=== PATIENT | female | born 1985 | race Caucasian/White ===

== ENCOUNTER 2018-01-28 11:47 | Inpatient (IN) | payer MEDICAID ==
[2018-01-28 12:50] LABS: ADD MAN DIFF? NO
[2018-01-28 12:59] LABS: WHITE BLOOD COUNT 7.3 10^3/ul (4.8-10.8)
[2018-01-28 12:59] LABS: BASOPHIL # 0.1 10^3/ul (0.0-0.1); BASOPHILS % 0.7 % (0.0-2.0); EOSINOPHILS # 0.2 10^3/ul (0.0-0.5); EOSINOPHILS % 2.1 % (0.0-7.0); HEMATOCRIT 42.2 % (37.0-47.0); HEMOGLOBIN 14.2 g/dl (12.0-16.0); LYMPHOCYTES # 1.7 10^3/ul (0.8-2.9); LYMPHOCYTES % 23.7 % (15.0-51.0); MEAN CORPUSCULAR HEMOGLOBIN 30.7 pg (29.0-33.0); MEAN CORPUSCULAR HGB CONC 33.6 g/dl (32.0-37.0); MEAN CORPUSCULAR VOLUME 91.3 fl (82.0-101.0); MEAN PLATELET VOLUME 10.5 fl (7.4-10.4); MONOCYTE # 0.6 10^3/ul (0.3-0.9); MONOCYTES % 7.6 % (0.0-11.0); NEUTROPHIL # 4.8 10^3/ul (1.6-7.5); NEUTROPHILS % 65.6 % (39.0-77.0); PLATELET COUNT 317 10^3/UL (140-415); RED BLOOD COUNT 4.62 10^6/ul (4.20-5.40); RED CELL DISTRIBUTION WIDTH 12.4 % (11.5-14.5)
[2018-01-28 13:25] LABS: ADD UMIC YES; UR ASCORBIC ACID 40 mg/dL (NEGATIVE); UR BACTERIA FEW /HPF (NONE SEEN); UR BILIRUBIN (Dip) NEGATIVE (NEGATIVE); UR BLOOD (Dip) 3+ mg/dL (NEGATIVE); UR CLARITY SLIGHTLY CLOUDY (CLEAR); UR COLOR YELLOW (YELLOW); UR GLUCOSE (Dip) NEGATIVE (NEGATIVE); UR KETONES (Dip) NEGATIVE (NEGATIVE); UR LEUKOCYTE ESTERASE (Dip) 1+ Leu/ul (NEGATIVE); UR NITRITE (Dip) NEGATIVE (NEGATIVE); UR RBC 61 /HPF (0-5); UR SPECIFIC GRAVITY (Dip) 1.026 (1.003-1.030); UR SQUAMOUS EPITHELIAL CELL FEW /HPF (FEW); UR TOTAL PROTEIN (Dip) NEGATIVE (NEGATIVE); UR UROBILINOGEN (Dip) NEGATIVE (NEGATIVE); UR WBC 9 /HPF (0-5)
[2018-01-28 13:52] LABS: INR 0.88; PT RATIO 0.9
[2018-01-28 13:53] LABS: PARTIAL THROMBOPLASTIN TIME 29.6 Sec (23.0-35.0)
[2018-01-28] MEDS ORDERED: ONDANSETRON 4 MG INJ IV (18:00)
[2018-01-28] MEDS ORDERED: ACETAMINOPHEN 325 MG TAB PO (18:00)
[2018-01-28] MEDS: DEXTROSE 5%-LR 1,000 ML IV (23:29)
[2018-01-28] MEDS: ACETAMINOPHEN 325 MG TAB PO (23:31)
[2018-01-29 00:03] LABS: ADD MAN DIFF? NO
[2018-01-29 00:04] LABS: BASOPHIL # 0.1 10^3/ul (0.0-0.1); BASOPHILS % 0.6 % (0.0-2.0); EOSINOPHILS # 0.2 10^3/ul (0.0-0.5); EOSINOPHILS % 2.7 % (0.0-7.0); HEMATOCRIT 39.5 % (37.0-47.0); HEMOGLOBIN 13.2 g/dl (12.0-16.0); LYMPHOCYTES # 2.2 10^3/ul (0.8-2.9); MEAN CORPUSCULAR HEMOGLOBIN 30.8 pg (29.0-33.0); MEAN CORPUSCULAR HGB CONC 33.4 g/dl (32.0-37.0); MEAN CORPUSCULAR VOLUME 92.1 fl (82.0-101.0); MEAN PLATELET VOLUME 10.5 fl (7.4-10.4); MONOCYTE # 0.7 10^3/ul (0.3-0.9); MONOCYTES % 7.8 % (0.0-11.0); NEUTROPHIL # 5.5 10^3/ul (1.6-7.5); NEUTROPHILS % 63.4 % (39.0-77.0); PLATELET COUNT 298 10^3/UL (140-415); RED BLOOD COUNT 4.29 10^6/ul (4.20-5.40); RED CELL DISTRIBUTION WIDTH 12.5 % (11.5-14.5)
[2018-01-29 00:04] LABS: WHITE BLOOD COUNT 8.6 10^3/ul (4.8-10.8)
[2018-01-29 00:32] LABS: ALANINE AMINOTRANSFERASE 42 IU/L (13-69); ALBUMIN 3.9 g/dl (3.3-4.9); ALKALINE PHOSPHATASE 73 IU/L (42-121); ANION GAP 11 (5-13); ASPARTATE AMINO TRANSFERASE 20 IU/L (15-46); BILIRUBIN,INDIRECT 0.7 mg/dl (0-1.1); BILIRUBIN,TOTAL 0.7 mg/dl (0.2-1.3); BLOOD UREA NITROGEN 10 mg/dl (7-20); CALCIUM 9.2 mg/dl (8.4-10.2); CARBON DIOXIDE 26 mmol/L (21-31); Estimated GFR > 60 mL/min (>60); GLUCOSE 97 mg/dl (70-220); POTASSIUM 3.5 mmol/L (3.5-5.1); SODIUM 139 mmol/L (135-144)
[2018-01-29 00:33] LABS: CHLORIDE 102 mmol/L (97-110)
[2018-01-29] MEDS: DEXTROSE 5%-LR 1,000 ML IV ×3 (07:00→23:12)
[2018-01-29] MEDS: METHOTREXATE 50 MG INJ IM (14:17)
[2018-01-29] MEDS: ACETAMINOPHEN 325 MG TAB PO (22:31)
[2018-01-29] MEDS: IBUPROFEN 600 MG TAB PO (23:10)
[2018-01-30] MEDS: ACETAMINOPHEN 325 MG TAB PO (05:40)
[2018-01-30] MEDS: DEXTROSE 5%-LR 1,000 ML IV ×3 (07:08→21:20)
[2018-01-31] MEDS: DEXTROSE 5%-LR 1,000 ML IV ×3 (05:47→23:00)
[2018-01-31] MEDS: CEPASTAT LOZENGE MT (21:06)
[2018-01-31] MEDS: GUAIFENESIN 20 MG/ML 5ML CUP PO (21:06)
[2018-01-31] MEDS: ACETAMINOPHEN 325 MG TAB PO (21:06)
[2018-02-01] MEDS: DEXTROSE 5%-LR 1,000 ML IV ×3 (06:28→23:00)
[2018-02-01] MEDS ORDERED: LIDOCAINE 2% (SDV) 5 ML INJ (07:00)
[2018-02-01] MEDS ORDERED: PROPOFOL 20 ML (09:43)
[2018-02-01] MEDS ORDERED: ROCURONIUM 50 MG INJ (09:51)
[2018-02-01] MEDS ORDERED: DEXAMETHASONE 4 MG/ML 5 ML INJ (09:55)
[2018-02-01] MEDS ORDERED: ONDANSETRON 4 MG INJ (09:55)
[2018-02-01] MEDS ORDERED: KETOROLAC 30 MG INJ (10:34)
[2018-02-01] MEDS ORDERED: CEFAZOLIN 1 GM INJ (10:42)
[2018-02-01] MEDS ORDERED: SUGAMMADEX SODIUM 200 MG/2 ML VIAL IV (10:42)
[2018-02-01] MEDS ORDERED: HYDROmorphONE 1 MG/5 ML IV SYRINGE IV ×2 (10:55→11:00)
[2018-02-01] MEDS ORDERED: ALBUTEROL 0.083% (NEB) 2.5 MG/3 ML AMP HHN (11:00)
[2018-02-01] MEDS ORDERED: LABETALOL HCL 20MG INJ IV (11:00)
[2018-02-01] MEDS ORDERED: hydrALAzine 20 MG INJ IV (11:00)
[2018-02-01] MEDS ORDERED: METOCLOPRAMIDE 10 MG INJ IV (11:00)
[2018-02-01] MEDS ORDERED: ONDANSETRON 4 MG INJ IV (11:00)
[2018-02-01] MEDS ORDERED: EPHEDrine SULFATE 50 MG/5 ML SYG IV (11:00)
[2018-02-01] MEDS ORDERED: DIPHENHYDRAMINE 50 MG INJ IV (11:00)
[2018-02-01] MEDS ORDERED: FENTAnyl 50 MCG/ML VIAL IV ×2 (11:00)
[2018-02-01] MEDS ORDERED: MIDAZOLAM 1 MG/ML 2 ML INJ IV (11:00)
[2018-02-01] MEDS ORDERED: FENTAnyl 50 MCG/ML VIAL (11:11)
[2018-02-01] MEDS ORDERED: MEPERIDINE 25 MG INJ (11:13)
[2018-02-01] MEDS: MEPERIDINE 25 MG INJ IV (11:16)
[2018-02-01] MEDS: HYDROmorphONE 1 MG/5 ML IV SYRINGE IV ×2 (11:17→11:42)
[2018-02-01] MEDS: FENTAnyl 50 MCG/ML VIAL IV ×2 (11:28→11:47)
[2018-02-01] MEDS ORDERED: IBUPROFEN 400 MG TAB PO (11:30)
[2018-02-01] MEDS ORDERED: OXYCODONE/ACETAMINOPHEN (10/325) TAB PO (11:30)
[2018-02-01 16:44] LABS: WHITE BLOOD COUNT 16.5 10^3/ul (4.8-10.8)
[2018-02-01 16:44] LABS: HEMATOCRIT 40.1 % (37.0-47.0); HEMOGLOBIN 13.7 g/dl (12.0-16.0); MEAN CORPUSCULAR HEMOGLOBIN 30.9 pg (29.0-33.0); MEAN CORPUSCULAR HGB CONC 34.2 g/dl (32.0-37.0); MEAN CORPUSCULAR VOLUME 90.3 fl (82.0-101.0); MEAN PLATELET VOLUME 10.6 fl (7.4-10.4); PLATELET COUNT 306 10^3/UL (140-415); RED BLOOD COUNT 4.44 10^6/ul (4.20-5.40); RED CELL DISTRIBUTION WIDTH 11.9 % (11.5-14.5)
[2018-02-01 16:56] LABS: ADD MAN DIFF? YES
[2018-02-01 16:58] LABS: BASOPHILS % 0.1 % (0.0-2.0); LYMPHOCYTES % 4.2 % (15.0-51.0); MONOCYTES % 1.2 % (0.0-11.0); NEUTROPHILS % 94.1 % (39.0-77.0)
[2018-02-01] MEDS: ACETAMINOPHEN 325 MG TAB PO (19:35)
[2018-02-01] MEDS: SENNA/DOCUSATE NA (8.6MG/50MG) TAB PO (20:38)
[2018-02-02] MEDS: DEXTROSE 5%-LR 1,000 ML IV ×2 (03:27→07:00)
[2018-02-02] MEDS: SENNA/DOCUSATE NA (8.6MG/50MG) TAB PO (09:03)
== END 2018-02-02 14:30 | disposition home or self-care (01) | DRG 819 ==
LOC: FTE 11:47 → MS1 17:38
PROVIDERS: Obstetrics & Gynecology
PROC: 10T20ZZ Resection of Products of Conception, Ectopic, Open Approach (ICD-10-PCS; principal; 2018-02-01 09:00)
PROC: 0UB50ZZ Excision of Right Fallopian Tube, Open Approach (ICD-10-PCS; 2018-02-01 09:00)
PROC: 10D27ZZ Extraction of Products of Conception, Ectopic, Via Natural or Artificial Opening (ICD-10-PCS; 2018-02-01 09:00)
PROC: 0WJG4ZZ Inspection of Peritoneal Cavity, Percutaneous Endoscopic Approach (ICD-10-PCS; 2018-02-01 09:00)
DX: O00.101 Right tubal pregnancy without intrauterine pregnancy (principal); Z53.31 Laparoscopic surgical procedure converted to open procedure; Z3A.08 8 weeks gestation of pregnancy
CPT/HCPCS: 36415; 76801; 76817; 76830; 76856; 80048; 80076; 81001; 84702; 84703; 85025; 85610; 85730; 86850; 86900; 86901; 87086; 88305; 99285-25